=== PATIENT | male | born 1970 | race Caucasian/White ===

== ENCOUNTER 2024-01-15 10:55 | Day surgery (SDC) | payer OTHER ==
[~2024-01-15] VITALS: Ht 180.3 cm; Wt 88.5 kg
[~2024-01-15 10:55] MED LIST: IBLOOD GLUCOSE TEST STRIP 1 EA TEST VI PRN; LACTATED RINGER'S 1,000 ML IV SCH; LIDOCAINE HCL 1% 5 ML SDV INJ ONE; MIDAZOLAM HCL 5 MG/5 ML VIAL IV PRN; MIDAZOLAM HCL 5 MG/5 ML VIAL ONE; fentaNYL citrate 100 MCG/2 ML VIAL IV PRN; fentaNYL citrate 100 MCG/2 ML VIAL ONE
[2024-01-15 11:09] VITALS: BP 167/89
--- NOTE | 2024-01-15 12:24 | NUR ---
01/15/24 Vinny4 Katiana Danielle 1218-PATIENT ARRIVED TO PACU ON 2L NC RR EVEN. PATIENT DROWSY HOB ELEVATED LAYING RIGHT LATERAL . DENIES PAIN OR NAUSEA. ABDOMEN ROUND AND SOFT ENCOURAGED TO PASS GAS. IVF INFUSING. PATIENT DOZES BACK TO SLEEP. GUARDS AT BEDSIDE
[2024-01-15 13:08] VITALS: BP 162/79
--- NOTE | 2024-01-16 13:37 | OR ---
[facility] [address] [place], [place] [address] Signed DATE OF OPERATION: 01/15/2024 SURGEON: Ara Stevens MD PREOPERATIVE DIAGNOSIS: Episodic rectal bleeding, generalized abdominal pain complaint (improved on a low-fiber diet). POSTOPERATIVE DIAGNOSIS: Left-sided diverticulosis, mild chronic proctitis. PROCEDURE: Total colonoscopy to cecum with cold morcellation biopsy of rectum. ANESTHESIA: Intravenous sedation, fentanyl 150 mcg, Versed 9 mg. INDICATION: This 53-year-old white man is a prisoner at [facility] and a patient of NITIN Muse. He was last seen by me in May 2023. At that time, he was having episodic rectal bleeding which was considered painless. He was given dietary manipulation, which according to patient, included a low-fiber diet. He describes it as a "low residue diet." Strangely that has helped him quite a bit with abdominal bloating and pain as well as less frequent bleeding. He is admitted at this time to undergo colonoscopy as had been recommended in May. He understands the risk of bleeding, infection, and perforation. FINDINGS: The prep was adequate with irrigation. Complete colonoscopy and full intubation of cecum was accomplished. Had scattered diverticula throughout the colon and what appeared to be mild chronic proctitis, but no sign of ulceration, certainly no hemorrhoids, no neoplasm or polyps. PROCEDURE IN DETAIL: The patient was brought to the endoscopy suite and placed in lateral decubitus position given intravenous sedation to the point of slurred speech and nystagmus. Full cardiopulmonary monitoring was maintained. Digital rectal examination was normal. An Olympus video colonoscope was passed in the rectum and manipulated into the colon. Irrigation was required due to a less than optimal bowel prep. With irrigation, the Electronically Signed By: ARA STEVENS MD 01/16/24 1337 PATIENT NAME: ZAN SERNA OPERATIVE REPORT DATE OF : 70 REPORT #: [id number] PHYSICIAN: ARA STEVENS MD PCP: CATHY JONES REPORT IS CONFIDENTIAL AND NOT TO BE RELEASED WITHOUT AUTHORIZATION [facility] [address] [place], [place] [address] Signed scope was able to be passed ultimately to the cecum. The ileocecal valve and appendiceal orifice were normal. Scope was withdrawn from that point and examination undertaken showed no sign of polyps or colitis, only scattered diverticula. Within the rectum, retroflexed view was undertaken confirming mild chronic proctitis. Biopsies were obtained to assess for histologic significance. Scope was carefully withdrawn through the anal canal showing no sign of fissure and he had no sign of internal hemorrhoids. Scope was removed. The patient was taken to the recovery room in good condition. CONCLUDING DIAGNOSES: 1. Mild chronic proctitis. 2. Scattered diverticula. PLAN: We will recommend continued method of dietary management, which if it is a low residue diet, though not typical would maintain its use as long as it is providing benefit to the patient as regards to the bleeding and abdominal pain complaints. More specifically, a high-fiber diet would be recommended for those patients with diverticulosis. He will return to the ongoing care of Cathy Jones at [facility]. MD LIBAN Castillo/MODL /[id number] cc: NITIN Suarez Copies: CATHY JONES ~ Electronically Signed By: ARA STEVENS MD 01/16/24 1337 PATIENT NAME: ZAN SERNA OPERATIVE REPORT DATE OF : 70 REPORT #: [id number] PHYSICIAN: ARA STEVENS MD PCP: CATHY JONES REPORT IS CONFIDENTIAL AND NOT TO BE RELEASED WITHOUT AUTHORIZATION
--- NOTE | 2024-01-16 16:22 | PATH ---
[facility] [address] [place], [place] [address] Signed SPECIMEN(S): A RECTUM BIOPSY SPECIMEN SOURCE: A. RECTUM BIOPSY CLINICAL HISTORY: Rectal bleeding/screening, mild proctitis, diverticulosis FINAL PATHOLOGIC DIAGNOSIS: Rectum, biopsy: - Colonic mucosa with no significant pathologic changes BRP MICROSCOPIC EXAMINATION: Histologic sections of all submitted blocks are examined by light microscopy. These findings, together with the gross examination, support the pathologic diagnosis. GROSS DESCRIPTION: The specimen, labeled and designated "Alfred rectum biopsy," is received in formalin and consists of one alva soft tissue fragment, 0.3 cm. Entirely submitted in (A1). VB (under the direct supervision of a pathologist) The Gross Description was prepared using a voice recognition system. The report was reviewed for accuracy; however, sound-alike word errors, addition and/or deletions may occur. If there is any question about this report, please contact Client Services. ADDITIONAL NOTES: Immunohistochemical and/or in situ hybridization studies if performed in this case included appropriate positive controls that reacted as expected. This test was developed and its performance characteristics determined by [facility]. It has not been cleared or approved by the U.S. Food and Drug Administration. The FDA has determined that such clearance or approval is not necessary. This test is used for clinical purposes. It should not be regarded as investigational or for research. [facility] is certified under the Clinical Laboratory Improvement Amendments of 1988 (CLIA) as qualified to perform high complexity clinical laboratory testing. PATIENT NAME: ZAN SERNA PATHOLOGY DATE OF : 70 REPORT #: [id number] PHYSICIAN: GHAZAL ESTRADA PCP: CATHY JONES REPORT IS CONFIDENTIAL AND NOT TO BE RELEASED WITHOUT AUTHORIZATION [facility] [address] [place], [place] [address] Signed PERFORMING LABORATORY: Technical component was performed by [facility], [address] [place] [address] (CLIA# [id number]). Professional interpretation was performed by [facility] - [address] [id number] Diagnostician: Emmanuel Landeros MD Pathologist Electronically Signed 01/16/2024 Copies: ~ PATIENT NAME: ZAN SERNA PATHOLOGY DATE OF : 70 REPORT #: [id number] PHYSICIAN: GHAZAL ESTRADA PCP: CATHY JONES REPORT IS CONFIDENTIAL AND NOT TO BE RELEASED WITHOUT AUTHORIZATION
== END 2024-01-15 13:10 | disposition home or self-care (01) ==
LOC: OPS 10:55 → DS 10:57 → OPS 12:15 → DS 12:15 → OPS 13:10
PROVIDERS: ATTEND Surgery
PROC: 0DBP8ZX Excision of Rectum, Via Natural or Artificial Opening Endoscopic, Diagnostic (ICD-10-PCS; principal; 2024-01-15 12:15)
DX: K62.89 Other specified diseases of anus and rectum (principal); K57.30 Diverticulosis of large intestine without perforation or abscess without bleeding
CPT/HCPCS: 99153; G0500; J2250; J3010; J7121

== ENCOUNTER 2025-10-07 06:38 | Emergency (ER) | payer OTHER ==
[~2025-10-07] VITALS: Ht 175.3 cm; Wt 109.7 kg
[2025-10-07 06:57] LABS: BASOPHILS 1.0 % (0.2-1.2); EOSINOPHILS 3.1 % (0.8-7.0); LYMPHOCYTES 22.1 % (21.8-53.1); MCH 27.4 PG (25.7-32.2); MCHC 33.6 g/dL (32.3-36.5); MCV 81.5 fL (79.0-92.2); MONOCYTES 7.6 % (5.3-12.2); NEUTROPHILS 65.8 % (34.0-67.9); RBC 5.19 M/uL (4.63-6.08)
[2025-10-07 07:13] LABS: ALT (SGPT) 36.0 U/L (14-59); AST (SGOT) 19.0 U/L (15-37); GLOMERULAR FILTRATION RATE,EST 49.0 mL/min (>60); PROTEIN, TOTAL 7.7 g/dL (6.4-8.2); UREA NITROGEN 23.0 mg/dL (7-18)
[2025-10-07] MEDS ORDERED: SODIUM CHLORIDE 0.9% 1,000 ML IV PRN (07:45)
[2025-10-07 07:48] LABS: BLOOD/HGB, URINE NEGATIVE (Negative); KETONE, URINE NEGATIVE (Negative); LEUK ESTERASE, URINE NEGATIVE (negative); NITRITE, URINE NEGATIVE (negative)
[2025-10-07 10:05] VITALS: BP 151/83
== END 2025-10-07 10:15 | disposition other institution, planned readmission (95) ==
LOC: ED 06:38
PROVIDERS: Emergency Medicine; Internal Medicine
DX: R91.1 Solitary pulmonary nodule (principal); R04.2 Hemoptysis; R93.2 Abnormal findings on diagnostic imaging of liver and biliary tract; N28.9 Disorder of kidney and ureter, unspecified; E11.9 Type 2 diabetes mellitus without complications; Z91.010 Allergy to peanuts; Z91.048 Other nonmedicinal substance allergy status; Z87.891 Personal history of nicotine dependence
CPT/HCPCS: 36415; 71045; 71260; 74177; 80053; 81003; 85025; 85379; 99284-25; J7030; Q9967